=== PATIENT | male | born 1950 | race Caucasian/White ===

== ENCOUNTER 2020-06-29 12:19 | Emergency (ER) | payer MEDICARE, OTHER ==
--- NOTE | 2020-06-29 13:19 | EDM.PDOC ---
ED HPI GENERAL MEDICAL PROBLEM - General Chief Complaint: General Stated Complaint: COVID POSITIVE Time Seen by Provider: 06/29/20 13:16 Source of Information: Reports: Patient History Limitations: Reports: No Limitations - History of Present Illness INITIAL COMMENTS - FREE TEXT/NARRATIVE: pt is very fatiqued. He started to have symptoms tueday nite. He was tested wed and his test did come back positive. Onset: Other ( started wednesday) Duration: Hour(s): Location: Reports: Chest, Generalized Associated Symptoms: Reports: Cough, Diaphoresis, Weakness - Related Data Allergies Allergy/AdvReac Type Severity Reaction Status Date / Time No Known Allergies Allergy Verified 06/29/20 12:50 Home Meds: Home Meds Pravastatin [Pravachol] 1 tab PO DAILY 06/29/20 [History] Past Medical History Cardiovascular History: Reports: High Cholesterol - Past Surgical History HEENT Surgical History: Reports: Tonsillectomy GI Surgical History: Reports: Appendectomy Social & Family History - Tobacco Use Tobacco Use Status *Q: Never Tobacco User ED ROS GENERAL - Review of Systems Review Of Systems: See Below Constitutional: Reports: Chills, Weakness, Diaphoresis, Decreased Appetite HEENT: Reports: No Symptoms Respiratory: Reports: Cough Cardiovascular: Reports: No Symptoms Endocrine: Reports: No Symptoms GI/Abdominal: Reports: No Symptoms : Reports: No Symptoms Musculoskeletal: Reports: No Symptoms Skin: Reports: No Symptoms ED EXAM, GENERAL - Physical Exam Exam: See Below Free Text/Narrative:: pt is here with a positive covid on wed. He is interested in getting the monoclonal infusion. Exam Limited By: No Limitations General Appearance: Alert, Anxious Ears: Normal TMs Nose: Normal Inspection Throat/Mouth: Normal Inspection Head: Atraumatic Neck: Normal Inspection Respiratory/Chest: No Respiratory Distress Cardiovascular: Regular Rate, Rhythm GI/Abdominal: Soft, Non-Tender (Male) Exam: Deferred Rectal (Males) Exam: Deferred Back Exam: Normal Inspection Extremities: Normal Inspection Course - Vital Signs Last Recorded V/S: Last Vital Signs Temp 37.8 C 06/29/20 12:58 Pulse 104 H 06/29/20 12:58 Resp 14 06/29/20 12:58 BP 140/86 06/29/20 12:58 Pulse Ox 96 06/29/20 12:58 - Orders/Labs/Meds Orders: Active Orders 24 hr Category Date Time Status CRP [C-REACTIVE PROTEIN] [CHEM] Stat Lab 06/29/20 13:32 Received DD [D-DIMER QUANTITATIVE] [COAG] Stat Lab 06/29/20 13:32 Received UA W/MICROSCOPIC [URIN] Urgent Lab 06/29/20 13:15 Ordered Labs: Laboratory Tests 06/29/20 06/29/20 Range/Units 13:32 13:32 WBC 4.5 (4.5-11.0) K/uL RBC 5.51 (4.30-5.90) M/uL Hgb 17.3 H (12.0-15.0) g/dL Hct 50.6 (40.0-54.0) % MCV 92 (80-98) fL MCH 31 (27-31) pg MCHC 34 (32-36) % Plt Count 69 L (150-400) K/uL Neut % (Auto) 61 (36-66) % Lymph % (Auto) 20 L (24-44) % Clarke % (Auto) 19 H (2-6) % Eos % (Auto) 0 L (2-4) % Baso % (Auto) 0 (0-1) % Sodium 137 L (140-148) mmol/L Potassium 4.2 (3.6-5.2) mmol/L Chloride 101 (100-108) mmol/L Carbon Dioxide 27 (21-32) mmol/L Anion Gap 13.2 (5.0-14.0) mmol/L BUN 16 (7-18) mg/dL Creatinine 1.6 H (0.8-1.3) mg/dL Est Cr Clr Drug Dosing 47.72 mL/min Estimated GFR (MDRD) 43 L (>60) Glucose 110 H (74-106) mg/dL Calcium 8.1 L (8.5-10.1) mg/dL Total Bilirubin 1.0 (0.2-1.0) mg/dL AST 25 (15-37) U/L ALT 38 (12-78) U/L Alkaline Phosphatase 78 (46-116) U/L Total Protein 6.7 (6.4-8.2) g/dL Albumin 3.4 (3.4-5.0) g/dL Globulin 3.3 (2.3-3.5) g/dL Albumin/Globulin Ratio 1.0 L (1.2-2.2) - Re-Assessments/Exams Free Text/Narrative Re-Assessment/Exam: 06/29/20 14:06 pt has a low wbc his labs look good except the creatnine is 1.6. Departure - Departure Time of Disposition: 14:07 Disposition: Home, Self-Care 01 Condition: Fair Clinical Impression: COVID-19, Dehydration - Discharge Information Referrals: PCP,None [Primary Care Provider] - Forms: ED Department Discharge Care Plan Goals: push fluids, rtc if increased symptoms. rtc Wednesday for the monoclonol infusion Sepsis Event Note (ED) - Evaluation Sepsis Screening Result: Possible Sepsis Risk - Focused Exam Vital Signs: Vital Signs Temp Pulse Resp BP Pulse Ox 06/29/20 12:58 37.8 C 104 H 14 140/86 96 - My Orders Last 24 Hours: My Active Orders 06/29/20 13:15 UA W/MICROSCOPIC [URIN] Urgent 06/29/20 13:32 CRP [C-REACTIVE PROTEIN] [CHEM] Stat DD [D-DIMER QUANTITATIVE] [COAG] Stat - Assessment/Plan Last 24 Hours: My Active Orders 06/29/20 13:15 UA W/MICROSCOPIC [URIN] Urgent 06/29/20 13:32 CRP [C-REACTIVE PROTEIN] [CHEM] Stat DD [D-DIMER QUANTITATIVE] [COAG] Stat
== END 2020-06-29 14:19 | disposition home or self-care (01) ==
LOC: JP.ED 12:19
DX: U07.1 COVID-19 (principal); E86.0 Dehydration; E78.00 Pure hypercholesterolemia, unspecified; Z79.899 Other long term (current) drug therapy
CPT/HCPCS: 36415; 80053; 85025; 85379; 86140; 99283